=== PATIENT | female | born 1985 | race Two or more races ===

== ENCOUNTER 2021-06-13 20:22 | Emergency (ER) | payer MEDICAID ==
[~2021-06-13] VITALS: Ht 165.1 cm; Wt 56.7 kg
--- NOTE | 2021-06-13 20:44 | NUR ---
PT BIBSELF C/O HEART PALPITATIONS "OFF AND ON" X 1 WEEK. PT AAOX4 BREATHING EVENLY AND UNLABORED. 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 PT ATTACHED TO DOLL EYE SETTER AND POX.
--- NOTE | 2021-06-13 20:45 | NUR ---
LAC 20G INITIATED BLOOD SENT TO LAB
[2021-06-13 21:16] LABS: BASOPHILS % (AUTO) 0.6 % (0.0-2.0); EOSINOPHILS % (AUTO) 0.9 % (0.0-6.0); HEMATOCRIT 37 % (33-45); HEMOGLOBIN 12.4 g/dL (11.5-14.8); LYMPHOCYTES # (AUTO) 2.4 K/uL (0.8-4.8); LYMPHOCYTES % (AUTO) 38.8 % (20.0-44.0); MEAN CORPUSCULAR HGB CONC 33 g/dl (31.0-36.0); MEAN CORPUSCULAR VOLUME 86 fL (82-100); MONOCYTES # (AUTO) 0.5 K/uL (0.1-1.30); MONOCYTES % (AUTO) 7.5 % (2.0-12.0); NEUTROPHILS # (AUTO) 3.3 K/uL (1.8-8.9); NEUTROPHILS % (AUTO) 52.2 % (43.0-81.0); PLATELET COUNT (AUTO) 179 K/uL (150-450); RED BLOOD CELL COUNT(AUTO) 4.36 MIL/uL (4.0-5.2); WHITE BLOOD COUNT (AUTO) 6.3 K/uL (4.3-11.0)
[2021-06-13 21:31] LABS: CALCIUM, SERUM 8.4 mg/dL (8.5-10.1); CARBON DIOXIDE 28 mmol/L (21-32); CHLORIDE 103 mmol/L (98-107); CREATININE 0.7 mg/dL (0.6-1.3); GLUCOSE 85 mg/dL (74-106); POTASSIUM 3.8 mmol/L (3.5-5.1); SODIUM SERUM 138 mmol/L (136-145); UREA NITROGEN, BLOOD 12 mg/dL (7-18)
[2021-06-13] MEDS ORDERED: LORA-258 PO (22:13)
[2021-06-13 23:01] VITALS: BP 136/80
--- NOTE | 2021-06-13 23:01 | NUR ---
Patient discharged to home in stable condition. Written and verbal after care instructions given. Patient verbalizes understanding of instruction.
== END 2021-06-13 23:02 | disposition home or self-care (01) ==
LOC: ER 20:30
DX: F41.9 Anxiety disorder, unspecified (principal); Z60.2 Problems related to living alone; Z79.899 Other long term (current) drug therapy
CPT/HCPCS: 36415; 80048-TC; 83880; 84443-TC; 84484-TC; 85025-TC